=== PATIENT | male | born 1995 | race Hispanic/Latino ===

== ENCOUNTER 2022-02-15 20:35 | Emergency (ER) | payer SELFPAY ==
[2022-02-15] MEDS ORDERED: Albuterol Sulfate 2.5 mg/0.5 ml Neb ONE (20:54)
[2022-02-15] MEDS ORDERED: Ondansetron PF 4 MG/2 ML Vial ONE (21:23)
[2022-02-15] MEDS ORDERED: diphenhydrAMINE 50 MG/ML VIAL ONE (21:23)
[2022-02-15 21:50] LABS: SARS-CoV-2 NAA Rapid Test Not Detected (NotDetected)
== END 2022-02-15 22:44 | disposition home or self-care (01) ==
LOC: ERS 20:35
DX: J11.1 Influenza due to unidentified influenza virus with other respiratory manifestations (principal); J45.901 Unspecified asthma with (acute) exacerbation; Z20.822 Contact with and (suspected) exposure to COVID-19
CPT/HCPCS: 71045; 96374; 96375; J1200; J2405; J7611